=== PATIENT | female | born 1970 | race Caucasian/White ===

== ENCOUNTER 2023-02-01 09:40 | Outpatient (CLI) | payer SELFPAY ==
[2023-02-01] MEDS ORDERED: BARIUM SULFATE 135 ML SUSP.RECON (E-Z-HD) PO ONE (09:50)
== END 2023-02-01 19:48 | disposition home or self-care (01) ==
LOC: SRD 09:40
PROVIDERS: ATTEND Otolaryngology
DX: R13.10 Dysphagia, unspecified (principal)
CPT/HCPCS: 74220-TC